=== PATIENT | male | born 1995 | race Caucasian/White ===

== ENCOUNTER 2021-09-12 14:50 | Emergency (ER) | payer OTHER, SELFPAY ==
[2021-09-12 14:54] VITALS: BP 116/70; PULSE 60; RESP 16; TEMP 36.6; O2SAT 99
--- NOTE | 2021-09-12 15:31 | PC.NURSE ---
reports cleaning house on 09/06 and reports getting glass in left thumb. patient reports area is tender. reports spouse received positive covid test from [facility] and would like to be tested.
[2021-09-12 16:46] VITALS: BP 128/66; PULSE 81; RESP 18; O2SAT 99
--- NOTE | 2021-09-12 17:08 | ED.GENADULT ---
HPI - General Adult General Chief complaint: Wound/Laceration Stated complaint: wound check Time Seen by Provider: 09/12/21 15:28 Source: patient Mode of arrival: ambulatory Limitations: no limitations History of Present Illness HPI narrative: Patient is 26-year-old male with chief complaint of wanting wound reevaluation for a area on his left thumb that he cut on glass 4 days ago. Patient reports that he remove the glass. He states he noticed some discoloration so he wanted to have it evaluated. Patient states that he also wants to be Covid tested as his recently tested positive. Patient denies any chest pain, shortness of breath, fever, chills, headache, nausea, vomiting, diarrhea or any other emergent symptoms. Related Data Home Medications Medication Instructions Recorded Confirmed No Home Medications 09/12/21 09/12/21 Allergies Allergy/AdvReac Type Severity Reaction Status Date / Time No Known Allergies Allergy Unverified 03/07/11 16:57 Review of Systems Review of Systems: CONSTITUTIONAL: Denies fever, chills, or sweats. EYES: Denies visual changes, redness, or discharge. ENT: Denies rhinorrhea, congestion, sore throat, or otalgia. CARDIOVASCULAR: Denies chest pain, palpitations, or edema. RESPIRATORY: Denies cough or dyspnea. GASTROINTESTINAL: Denies abdominal pain, nausea, vomiting, or diarrhea. GENITOURINARY: Denies dysuria or hematuria. SKIN: Reports wound denies rash or itching. MUSCULOSKELETAL: Denies back pain, joint pain, or myalgia. NEUROLOGIC: Denies headache, numbness, dizziness, or weakness. PSYCHIATRIC: Denies anxiety or depression. Exam Narrative: GENERAL: Well-appearing, well-nourished, and in no acute distress. HEAD: Normocephalic, atraumatic. EXTREMITIES: Normal range of motion. No edema. SKIN: Healing wound to the palmar aspect of the left thumb. No signs of abscess or purulent drainage. Warm, dry, no rash. NEURO: No focal deficits. Alert and oriented x3. PSYCH: Normal mood and affect. Course Vital Signs Vital signs: Vital Signs Temperature 97.9 F 09/12/21 14:54 Pulse Rate 60 09/12/21 14:54 Respiratory Rate 16 09/12/21 14:54 Blood Pressure 116/70 09/12/21 14:54 Pulse Oximetry 99 09/12/21 14:54 Temperature 97.9 F 09/12/21 14:54 Pulse Rate 81 09/12/21 16:46 Respiratory Rate 18 09/12/21 16:46 Blood Pressure 128/66 09/12/21 16:46 Pulse Oximetry 9 L 09/12/21 16:46 Medical Decision Making MDM Narrative Medical decision making narrative: Wound appears to be healing well. Patient instructed to wash area with antibacterial soap and apply antibacterial ointment. Patient strict to follow-up with primary care for any signs of infection present. Patient swab for Covid and instructed to isolate as instructed by the health department. Vital Signs Vital Signs: Vital Signs Temperature 97.9 F 09/12/21 14:54 Pulse Rate 60 09/12/21 14:54 Respiratory Rate 16 09/12/21 14:54 Blood Pressure 116/70 09/12/21 14:54 Pulse Oximetry 99 09/12/21 14:54 Temperature 97.9 F 09/12/21 14:54 Pulse Rate 81 09/12/21 16:46 Respiratory Rate 18 09/12/21 16:46 Blood Pressure 128/66 09/12/21 16:46 Pulse Oximetry 9 L 09/12/21 16:46 Lab Data Labs: Lab Results 09/12/21 Range/Units 16:42 SARS-CoV-2 RNA (RT-PCR) Pending Discharge Plan Discharge Clinical Impression: Encounter for wound re-check Patient Disposition: Home, Self-Care Condition: Stable Instructions: Antibiotic Form, Puncture Wound (ED), COVID-19: Slow the Coronavirus Spread (ED) Additional Instructions: Wash area with antibacterial soap and apply antibacterial ointment. Follow-up with your primary care in 2 to 3 days for wound reevaluation. Follow-up sooner if there are any questions or concerns or worsening signs of infection. Follow the health department guidelines regarding quarantine instructions. Call your primary care in 24 to 72 hours for Co
[2021-09-13 02:21] LABS: SARS-CoV-2 RNA PCR Positive
== END 2021-09-12 16:42 | disposition home or self-care (01) ==
PROVIDERS: Physician Assistant; Emergency Provider Family Medicine; PCP Family Medicine
DX: S61.002A Unspecified open wound of left thumb without damage to nail, initial encounter (principal); U07.1 COVID-19; W25.XXXA Contact with sharp glass, initial encounter
CPT/HCPCS: 99283; C9803; U0003; U0005